=== PATIENT | female | born 1990 | race African-American/Black ===

== ENCOUNTER 2018-10-28 11:21 | Emergency (ER) | payer SELFPAY ==
[~2018-10-28] VITALS: Ht 154.9 cm; Wt 61.2 kg
--- NOTE | 2018-10-28 11:40 | NUR ---
Patient discharged to home in stable conditon. Written and verbal after care instructions given to patient. Patient verbalizes understanding of instructions.
== END 2018-10-28 11:44 | disposition home or self-care (01) ==
LOC: ER 11:21
DX: S61.101A Unspecified open wound of right thumb with damage to nail, initial encounter (principal); W22.01XA Walked into wall, initial encounter; Y93.89 Activity, other specified; Y92.89 Other specified places as the place of occurrence of the external cause; Y99.8 Other external cause status
CPT/HCPCS: A4663